=== PATIENT | female | born 1995 | race Caucasian/White ===

== ENCOUNTER 2017-11-09 08:16 | Outpatient (CLI) ==
--- NOTE | 2017-11-09 09:34 | US ---
EXAM: Abdominal ultrasound limited HISTORY: Bloating for 1 month COMPARISON: None TECHNIQUE: Sonographic and limited Doppler evaluation of the right upper quadrant was performed. FINDINGS: The liver is normal in echogenicity and measures 11.5 cm. The portal vein is patent. The gallbladder demonstrates no stones or sludge. The gallbladder wall measures 0.2 cm in thickness. Co mmon bile duct is unremarkable and measures 0.3 cm in diameter. The pancreas is unremarkable in appe arance. The right kidney cannot be evaluated due to extensive overlying bowel gas. IMPRESSION: No sonographic abnormality to account for patient's symptoms.
== END 2017-11-09 08:17 | disposition home or self-care (01) ==
LOC: RAD 08:16
PROVIDERS: ATTEND Physician Assistant
DX: R10.11 Right upper quadrant pain (principal)

== ENCOUNTER 2018-02-10 07:32 | Outpatient (CLI) ==
--- NOTE | 2018-02-10 09:19 | US ---
EXAM: Thyroid ultrasound History: Thyroid goiter, follow-up thyroid nodules. Comparison: Thyroid ultrasound 04/02/2015 Technique: Multiple sonographic images through the thyroid gland were obtained. Color duplex Dopple r was used to interrogate vascular flow. Findings: The right lobe of the thyroid measures 3.5 cm x 2.1 cm x 1.1 cm demonstrates heterogeneous echotextur e with a few complex nodules and the largest measuring 1.3 cm x 0.4 cm x 0.7 cm and is not clearly se en on the prior study. Thyroid isthmus measures 0.4 cm in thickness. Left lobe of the thyroid measures 4.4 cm x 1.2 cm x 0.7 cm and demonstrates heterogeneous echotexture with no discrete nodule identified. Thyroid gland is not hypervascular. No active thyroidal masses are identified. Impression: 1. Heterogeneous thyroid gland. 2. Right thyroid nodules. Recommend follow-up ultrasound in 6 months to document stability.
== END 2018-02-10 07:33 | disposition home or self-care (01) ==
LOC: RAD 07:32
PROVIDERS: ATTEND Physician Assistant
DX: E04.9 Nontoxic goiter, unspecified (principal)

== ENCOUNTER 2018-06-08 07:33 | Outpatient (CLI) ==
--- NOTE | 2018-06-08 08:38 | US ---
EXAM: ULTRASOUND ABDOMEN COMPLETE HISTORY: Abdominal distension FINDINGS: Laureano scale ultrasound and color Doppler was performed. The liver size was normal at about 10 cm. The liver parenchyma demonstrated normal sonographic appearance without evidence of intrahepatic biliary dilatation or focal lesion. Patent and hepatopedal main portal vein. No evidence of gallbladder stones or sludge. Gallbladder wall thickness was normal at 0.25 centimete rs and the common duct diameter was normal at 0.37 centimeters. The visualized portions of the pancreas appeared grossly unremarkable. The visualized aorta and infe rior vena cava had grossly normal caliber. Spleen appeared normal sonographically and measured yakov l at 10.0 cm. The right kidney measured 9.7 cm and the left kidney 11.0 cm. Renal cortical volume and echogenicity was within normal limits for age. No hydronephrosis seen. No ascites. IMPRESSION: Findings within normal limits sonographically.
== END 2018-06-08 07:34 | disposition home or self-care (01) ==
LOC: RAD 07:33
PROVIDERS: ATTEND Physician Assistant
DX: R14.0 Abdominal distension (gaseous) (principal)